=== PATIENT | female | born 1985 ===

== ENCOUNTER 2019-08-10 08:50 | Day surgery (SDC) | payer OTHER ==
[2019-08-10] MEDS ORDERED: ZIPSOR25 MG PO (11:38)
[2019-08-10] MEDS ORDERED: ZITHROMAX500 MG PO (11:38)
== END 2019-08-10 15:50 | disposition home or self-care (01) ==
LOC: CIR.AMB 08:50
DX: N84.0 Polyp of corpus uteri (principal)